=== PATIENT | female | born 1960 | race Caucasian/White ===

== ENCOUNTER → 2018-11-23 | Outpatient (CLI) | payer MEDICARE, OTHER ==
[~2018-11-23] MED LIST: AMLO5 PO; Abilify2 MG PO; CEPH250A PO; CEPH500 PO; CLIN300 PO; CODACE30; DIAZ5 PO; DULO60 PO; FURO40 PO; HYDCHL25; HYDR1TAB94 PO; LISI10 PO; LISI20 PO; LOPE2C PO; METF500 PO; METH10 PO; METH40 PO; METO25 PO; MULVITA PO; OXYACE7.5T PO; OXYC10ER PO; POTCHL10ER PO; PRED20 PO; SERT50; TAMS.4ER PO; TOPI50 PO; TRAZ100; TRAZ100 PO; VALS80 PO
== END | disposition home or self-care (01) ==
LOC: LAB 11:07 → LAB SHORT 11:07
DX: N39.0 Urinary tract infection, site not specified (principal)
CPT/HCPCS: 87086

== ENCOUNTER → 2018-12-31 | Outpatient (CLI) | payer MEDICARE, OTHER | END | disposition home or self-care (01) | LOC: LAB 14:30 → LAB SHORT 14:30 | DX: R30.0 Dysuria (principal) | CPT/HCPCS: 87077; 87086; 87186 ==

== ENCOUNTER 2021-01-30 14:28 | Emergency (ER) | payer OTHER ==
[~2021-01-30] VITALS: Ht 157.5 cm; Wt 101.2 kg
[2021-01-30] MEDS ORDERED: LIDO700A20 TOP (16:35)
[2021-01-30] MEDS ORDERED: Acetaminophen500 MG PO (16:35)
== END 2021-01-30 17:02 | disposition home or self-care (01) ==
LOC: ER 14:28
DX: S09.90XA Unspecified injury of head, initial encounter (principal); S50.11XA Contusion of right forearm, initial encounter; S80.211A Abrasion, right knee, initial encounter; Z79.899 Other long term (current) drug therapy; Z98.84 Bariatric surgery status; Z88.0 Allergy status to penicillin; Y04.2XXA Assault by strike against or bumped into by another person, initial encounter
CPT/HCPCS: 73030; 73090; 73562-RT; 99284-25; A9270

== ENCOUNTER → 2021-02-18 | Outpatient (CLI) | payer OTHER ==
[~2021-02-18] MED LIST changes: +Acetaminophen500 MG PO; +LIDO700A20 TOP
== END | disposition home or self-care (01) ==
LOC: LAB SHORT 16:35
DX: M79.672 Pain in left foot (principal)
CPT/HCPCS: 84550

== ENCOUNTER → 2021-11-01 | Outpatient (CLI) | payer OTHER ==
[~2021-11-01] MED LIST changes: +ALLO300 PO; +SPIR50 PO
== END | disposition home or self-care (01) ==
LOC: LAB SHORT 13:07 → LAB 13:07
DX: R30.9 Painful micturition, unspecified (principal)
CPT/HCPCS: 87086

== ENCOUNTER → 2022-07-10 | Outpatient (CLI) | payer OTHER | END | disposition home or self-care (01) | LOC: LAB SHORT 13:20 → LAB 13:20 | DX: N39.0 Urinary tract infection, site not specified (principal) | CPT/HCPCS: 87086 ==

== ENCOUNTER 2022-09-01 06:07 | Day surgery (SDC) | payer OTHER ==
[~2022-09-01] VITALS: Ht 157.5 cm; Wt 104.7 kg
[~2022-09-01 06:07] MED LIST changes: +CALC.25 PO; +LOSA50 PO
[2022-09-01] MEDS ORDERED: Ventolin/Prove6.7 GM INH (07:21)
--- NOTE | 2022-09-01 07:41 | NUR ---
09/01/22 0741 Lori Prabhakar TYLENOL,OXYCODONE GIVEN PO PER ORDERS, SEE MAR VANCOMYCIN STARTED IN PRE-OP 0715 PER ORDERS
--- NOTE | 2022-09-01 08:30 | NUR ---
09/01/22 0830 Eirc De Paz BLOCK COMPLETE IN OR PRIOR TO INTUBATION. SITE CHECK COMPELTE. PT TOLERATED WELL, VSS.
[2022-09-01 12:23] VITALS: BP 116/59
--- NOTE | 2022-09-01 14:36 | NUR ---
09/01/22 1436 Rosendo Nair PT'S APPEARED AGITATED UPON BEING BROUGHT TO STEP DOWN. HE ASKED SEVERAL TIMES HOW MUCH LONGER RECOVERY WOULD TAKE AND COMPLAINED ABOUT BEING HUNGRY. HE WAS GIVEN SNACKS. PT'S LEFT THE ROOM SHORTLY AFTERWARD AND ASKED THE RN TO LET HIM KNOW WHEN PATIENT WAS READY TO GO HOME. PT'S O2 INITIALLY MAINTAINED 91-96% WITH SUPPLEMENTAL OXYGEN VIA NASAL CANULA IN STEP DOWN. PT WOULD DROP IN TO THE 80'S WHEN SUPPLEMENTAL OXYGEN WAS REMOVED. BY THE END OF PT'S STAY IN STEP DOWN, SHE WAS MAINTAINING 92-97% O2 ON ROOM AIR WITH OCCASIONAL DROPS LOW 86%. PT'S O2 WOULD RETURN TO 90'S SPONTANEOUSLY AFTER 1-3 MINUTES. PT DENIED DIZZINESS, SHORTNESS OF BREATH, OR OTHER SYMPTOMS OF HYPOXIA WHEN O2 WAS REMOVED. DR. COCHRAN AND DR. ZUNIGA WERE CONSULTED. THEY APPROVED PT'S DISCHARGE WITH THE AGREEMENT SHE WOULD SLEEP IN A RECLINER AND WEAR HER CPAP FOR SEVEN DAY AND USE INCENTIVE SPIROMETERY. PT AGREED TO THESE TERMS AND WAS INSTRUCTED IN USE OF INCENTIVE SPIROMTER. SHE DENIED PAIN AND NAUSEA THROUGHOUT HER STAY IN STEP DOWN.
== END 2022-09-01 13:50 | disposition home or self-care (01) ==
LOC: ORSCSDS 06:07
PROVIDERS: Orthopaedic Surgery
PROC: 0RRJ00Z Replacement of Right Shoulder Joint with Reverse Ball and Socket Synthetic Substitute, Open Approach (ICD-10-PCS; principal; 2022-09-01 07:30)
DX: M19.011 Primary osteoarthritis, right shoulder (principal); M75.121 Complete rotator cuff tear or rupture of right shoulder, not specified as traumatic; I10 Essential (primary) hypertension; J44.9 Chronic obstructive pulmonary disease, unspecified; G47.33 Obstructive sleep apnea (adult) (pediatric); E11.9 Type 2 diabetes mellitus without complications; F41.8 Other specified anxiety disorders; E66.01 Morbid (severe) obesity due to excess calories; Z68.41 Body mass index [BMI] 40.0-44.9, adult; Z79.84 Long term (current) use of oral hypoglycemic drugs; Z79.899 Other long term (current) drug therapy
CPT/HCPCS: 73030; 82947; A9270; C1713; C1776; J0171; J0696; J1100; J2250; J2370; J2405; J2704; J2795; J3010; J3370; J7060; J7120

== ENCOUNTER 2024-06-01 19:39 | Inpatient (IN) | payer OTHER ==
[~2024-06-01] VITALS: Ht 152.4 cm; Wt 108.0 kg
[~2024-06-01 19:39] MED LIST changes: +ABILIFY MYCITE5 M2 PO; +ALBU90OI INH; -Abilify2 MG PO; +Ventolin/Prove6.7 GM INH
[2024-06-01 20:25] LABS: BASOPHILS ABSOLUTE AUTO 0.03 K/mm3 (0.00-0.23); BASOPHILS PERCENT AUTO 0 % (0-2); EOSINOPHILS ABSOLUTE AUTO 0.26 K/mm3 (0.00-0.68); EOSINOPHILS PERCENT AUTO 3 % (0-6); Hematocrit 36.9 % (33.0-51.0); Hemoglobin 12.2 g/dL (11.5-16.0); IMMATURE GRAN ABSOLUTE AUTO 0.07 K/mm3 (0.00-0.10); IMMATURE GRAN PERCENT AUTO 1 % (0-1); LYMPHOCYTES ABSOLUTE AUTO 1.51 K/mm3 (0.84-5.20); LYMPHOCYTES PERCENT AUTO 15 % (21-46); MONOCYTES ABSOLUTE AUTO 1.56 K/mm3 (0.16-1.47); MONOCYTES PERCENT AUTO 16 % (4-13); Mean Corpuscular HGB 31.7 pg (26.0-34.0); Mean Corpuscular HGB Conc 33.1 g/dL (31.5-36.5); Mean Corpuscular Volume 96 fL (80-100); Mean Platelet Volume 10.6 fL (9.1-12.4); NEUTROPHILS ABSOLUTE AUTO 6.56 K/mm3 (1.96-9.15); NEUTROPHILS PERCENT AUTO 66 % (41-73); Platelet Count 173 K/mm3 (150-400); RDW Coefficient Variation 12.9 % (11.7-14.2); RDW Standard Deviation 45.4 fL (35.1-46.3); Red Blood Cell Count 3.85 M/mm3 (3.80-5.20); White Blood Cell Count 9.99 K/mm3 (4.00-11.30)
[2024-06-01 20:38] LABS: Albumin, Blood 2.8 g/dL (3.4-5.0); Albumin/Globulin Ratio 0.6 (0.8-1.8); Bilirubin, Total 0.5 mg/dL (0.1-1.0); Bun/Creatinine Ratio 9.8 (12.0-20.0); Calcium, Blood 9.3 mg/dL (8.5-10.1); Creatinine, Blood 1.32 mg/dL (0.40-1.00); Globulin, Blood 4.5 g/dL (2.2-4.0); Potassium, Blood 3.4 mmol/L (3.5-5.5); Total Protein, Blood 7.3 g/dL (6.4-8.2)
[2024-06-01 21:01] LABS: Influenza A, PCR NEGATIVE (NEGATIVE); Influenza B, PCR NEGATIVE (NEGATIVE); Resp Syncytial Virus, PCR NEGATIVE (NEGATIVE); SARS-Cov-2 (COVID-19) PCR, MMC NEGATIVE (NEGATIVE)
[2024-06-01] MEDS ORDERED: CefTRIAXone Sodium 1,000 MG in NS 50 ML IV ONE ×2 (21:55→22:25)
[2024-06-01] MEDS ORDERED: MethylPREDNISolone Sod Succ 125 MG Vial IV ONE (21:55)
[2024-06-01] MEDS ORDERED: Ipratropium/Albuterol SulF 2.5-0.5MG/3 ML Amp INH ONE (21:55)
[2024-06-01] MEDS ORDERED: Azithromycin 250 MG Tab PO ONE (21:55)
[2024-06-01] MEDS ORDERED: Ondansetron HCl 2 MG / ML 2ML Vial IV ONE (22:40)
[2024-06-02] MEDS ORDERED: Ondansetron HCl 2 MG / ML 2ML Vial IV PRN (00:30)
[2024-06-02] MEDS ORDERED: FLU VACC TS2024-25(6MOS UP)/PF 45 MCG/0.5 ML SYRINGE IM ONE (00:30)
[2024-06-02] MEDS ORDERED: Albuterol 2.5 MG/3 ML VIAL INH PRN (00:30)
[2024-06-02] MEDS ORDERED: Acetaminophen 325 MG TABLET PO PRN (00:30)
[2024-06-02 02:17] VITALS: BP 112/57
[2024-06-02] MEDS ORDERED: Mometasone/Formoterol MDI 200/5 mcg 13 GM INH SCH (03:20)
[2024-06-02] MEDS ORDERED: Albuterol 2.5 MG/3 ML VIAL INH SCH (03:20)
[2024-06-02 05:32] LABS: BASOPHILS ABSOLUTE AUTO 0.02 K/mm3 (0.00-0.23); BASOPHILS PERCENT AUTO 0 % (0-2); EOSINOPHILS PERCENT AUTO 0 % (0-6); Hematocrit 37.6 % (33.0-51.0); Hemoglobin 12.4 g/dL (11.5-16.0); IMMATURE GRAN ABSOLUTE AUTO 0.14 K/mm3 (0.00-0.10); IMMATURE GRAN PERCENT AUTO 2 % (0-1); LYMPHOCYTES PERCENT AUTO 5 % (21-46); MONOCYTES ABSOLUTE AUTO 0.35 K/mm3 (0.16-1.47); MONOCYTES PERCENT AUTO 4 % (4-13); Mean Corpuscular HGB 31.4 pg (26.0-34.0); Mean Corpuscular Volume 95 fL (80-100); Mean Platelet Volume 10.6 fL (9.1-12.4); NEUTROPHILS ABSOLUTE AUTO 8.58 K/mm3 (1.96-9.15); NEUTROPHILS PERCENT AUTO 90 % (41-73); Platelet Count 189 K/mm3 (150-400); RDW Coefficient Variation 12.9 % (11.7-14.2); RDW Standard Deviation 45.1 fL (35.1-46.3); Red Blood Cell Count 3.95 M/mm3 (3.80-5.20); White Blood Cell Count 9.59 K/mm3 (4.00-11.30)
[2024-06-02 06:09] LABS: Albumin, Blood 2.9 g/dL (3.4-5.0); Albumin/Globulin Ratio 0.6 (0.8-1.8); Bilirubin, Total 0.3 mg/dL (0.1-1.0); Bun/Creatinine Ratio 10.2 (12.0-20.0); Calcium, Blood 9.4 mg/dL (8.5-10.1); Creatinine, Blood 1.37 mg/dL (0.40-1.00); Globulin, Blood 4.8 g/dL (2.2-4.0); Magnesium, Blood 2.2 mg/dL (1.6-2.4); Potassium, Blood 3.8 mmol/L (3.5-5.5); Total Protein, Blood 7.7 g/dL (6.4-8.2)
[2024-06-02 07:42] VITALS: BP 115/90
[2024-06-02] MEDS ORDERED: Benzonatate 100 MG Cap PO PRN (08:25)
[2024-06-02 08:39] LABS: Base Excess Venous -1.3 mmol/L; Bicarbonate Venous 22.6 mmol/L (24.0-30.0); PCO2 Venous 53.8 mmHg (38-42); pH Blood Venous 7.28 (7.34-7.37)
[2024-06-02] MEDS ORDERED: Lactobacil 2-S.Thermo-Bifido 1 1 Cap PO SCH (09:00)
[2024-06-02] MEDS ORDERED: Enoxaparin 40 MG/0.4 ML SYR SC SCH (09:00)
[2024-06-02] MEDS ORDERED: Docusate Sodium/Senna 1 Tab PO ONE (11:50)
[2024-06-02] MEDS ORDERED: Docusate Sodium/Senna 1 Tab PO PRN (11:50)
[2024-06-02] MEDS ORDERED: Furosemide 10 MG / ML 2ML Vial IV ONE (12:35)
[2024-06-02] MEDS ORDERED: Lactated Ringer's 1,000 ML IV SCH (14:05)
[2024-06-02 16:11] VITALS: BP 116/70
[2024-06-02] MEDS ORDERED: TraZODone HCl 50 MG Tab PO PRN (18:05)
--- NOTE | 2024-06-02 18:39 | NUR ---
SHIFT SUMMARY PT A&OX4. PT ADMITTED DUE TO PNEUMONIA. PT REPORTS SOB WHEN AMBULATING AND LAYING FLAT. PT REPORTS GENERALIZED PAIN. PAIN MANAGED PER EMAR. CONT. PULSE OX ON. SPO2 IS 97% AND ON 6L OF O2 WITH N/C AND HUMIDIFIER. PT GETS RESPIRATORY TREATNENTS PRN. PT HAS PRODUCTIVE COUGH, PT REPORTS IMPROVEMENT WITH TESSLON. PT USES CANE AT BASE AND IS A SBA TO BSC. PT REPORTS FREQUENCY VOIDING AND IS CONT. OF URINE AND BOWELS. ORDERED PM PRN TRAZADONE PER PT REQUEST FOR SLEEP, PT USES CPAP AT NIGHT. PT BED IN LOWEST POSITION. PT HAS A BAG OF LR RUNNING AT 200ML/HR. A CRITICAL PH OF 7.28 WAS REPORTED TODAY, NOTIFIED A CRITICAL LACTIC ACID WAS REPORTED OF 2.1, WAS NOTIFIED. LACTIC ACID RECHECKED AND NOW 1.8. CALL LIGHT IN REACH.
[2024-06-02] MEDS ORDERED: FLUT1DIS2 INH (19:05)
[2024-06-02 20:33] VITALS: BP 102/51
[2024-06-02] MEDS ORDERED: CefTRIAXone Sodium 1,000 MG in NS 100 ML IV SCH (21:00)
[2024-06-02] MEDS ORDERED: Azithromycin 500 MG in NS 250 ML IV SCH (21:00)
[2024-06-03] MEDS ORDERED: ALLO100 PO (02:22)
[2024-06-03] MEDS ORDERED: Lovastatin20 MG PO (02:23)
[2024-06-03] MEDS ORDERED: DULO60 PO (02:23)
[2024-06-03 04:36] VITALS: BP 120/66
[2024-06-03 05:25] LABS: Base Excess Venous 2.9 mmol/L; Bicarbonate Venous 25.7 mmol/L (24.0-30.0); PCO2 Venous 61.2 mmHg (38-42); pH Blood Venous 7.29 (7.34-7.37)
--- NOTE | 2024-06-03 06:02 | NUR ---
SHIFT SUMMARY VIVITED UNTIL 8PM, APPEARED TO HAVE RESTED FAIR OVERNIGHT, ORIENTED X2 (PERSON/PLACE) VERY SLOW TO RESPOND TO QUESTIONS & ANSWERS APPROPRIATELY INCONSISTENTLY, SKIN WARM TO COOL AND DRY,FEET COLD, PT PREFERS NO SHEET OR BLANKET OVER HER, TOLERATED BIPAP MOST OF NIGHT ALTHOUGH VOICED DID NOT LIKE IT. REMOVED FOR A.M. TYLENOL REQUEST FOR BILAT LEG PAIN, 02 REAPPLIED AT 3L/M NC WHEN BIPAP NOT ON. SATS LOW TO MID 90s OVERNIGHT WITH HRs 80S TO 107 RANGE, HAD A 5 BEAT RUN OF V TACH TWICE OVERNIGHT (ASYMPTOMATIC/DURING SLEEP), VSS, INTERMITTENT LOOSE TO SOFT (BROWN) STOOLS ONGOING, [place] [facility] AND [place] [facility] DONE AFTER EA EPISODE. TURNED Q 2 HRS, TOLERATED, NO RESP DISTRESS.
[2024-06-03 06:11] LABS: BASOPHILS ABSOLUTE AUTO 0.05 K/mm3 (0.00-0.23); BASOPHILS PERCENT AUTO 1 % (0-2); EOSINOPHILS ABSOLUTE AUTO 0.09 K/mm3 (0.00-0.68); EOSINOPHILS PERCENT AUTO 1 % (0-6); Hematocrit 36.2 % (33.0-51.0); Hemoglobin 11.7 g/dL (11.5-16.0); IMMATURE GRAN ABSOLUTE AUTO 0.27 K/mm3 (0.00-0.10); IMMATURE GRAN PERCENT AUTO 3 % (0-1); LYMPHOCYTES ABSOLUTE AUTO 1.64 K/mm3 (0.84-5.20); LYMPHOCYTES PERCENT AUTO 16 % (21-46); MONOCYTES PERCENT AUTO 11 % (4-13); Mean Corpuscular HGB 31.5 pg (26.0-34.0); Mean Corpuscular HGB Conc 32.3 g/dL (31.5-36.5); Mean Corpuscular Volume 97 fL (80-100); Mean Platelet Volume 10.7 fL (9.1-12.4); NEUTROPHILS ABSOLUTE AUTO 7.01 K/mm3 (1.96-9.15); NEUTROPHILS PERCENT AUTO 69 % (41-73); Platelet Count 197 K/mm3 (150-400); RDW Standard Deviation 46.4 fL (35.1-46.3); Red Blood Cell Count 3.72 M/mm3 (3.80-5.20); White Blood Cell Count 10.16 K/mm3 (4.00-11.30)
[2024-06-03 06:32] LABS: Bun/Creatinine Ratio 12.8 (12.0-20.0); Calcium, Blood 9.1 mg/dL (8.5-10.1); Creatinine, Blood 1.64 mg/dL (0.40-1.00); Potassium, Blood 3.5 mmol/L (3.5-5.5)
[2024-06-03] MEDS ORDERED: Benzonatate 100 MG Cap PO PRN (10:30)
[2024-06-03] MEDS ORDERED: Benzonatate 100 MG Cap PO ONE (10:30)
[2024-06-03 16:45] VITALS: BP 141/72
--- NOTE | 2024-06-03 18:47 | NUR ---
SHIFT SUMMARY PT A&OX4. PT ADMITTED DUE TO PNEUMONIA. PT REPORTS SOB WHEN AMBULATING AND LAYING FLAT. PT REPORTS GENERALIZED PAIN AND HEADACHE, PAIN MANAGED PER EMAR. CONT. PULSE OX ON. SPO2 IS 94% ON 6 LITERS VIA N/C WITH HUMIDIFIER. PT GETS RESPIRATORY TREATMENT PRN. 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 PT HAS PRODUCTIVE COUGH. PT REQUESTED INCREASE IN DOSE OF TESSLON PEARLS, DR. SALDIVAR NOTIFIED AND INCREASED. PT HAS SOME STRESS INC. PT REPORTS FREQ VOIDING AND IS CONT. OF URINE AND BOWELS. PT TRANSFERS TO BSC. PT SITTING IN RECLINER TODAY. CALL LIGHT IN REACH, CALLS APPROPRIATE. VSS.
[2024-06-03 19:33] VITALS: BP 136/65
[2024-06-03] MEDS ORDERED: NS 250 ML IV PRN (20:15)
[2024-06-04 02:42] VITALS: BP 125/66
--- NOTE | 2024-06-04 05:01 | NUR ---
SHIFT SUMMARY: Pt is admitted for PNA and is a full code. Is alert and able to make needs known. ADLs have been SBA. Pain has been managed with PRN medication.
[2024-06-04 05:42] LABS: BASOPHILS ABSOLUTE AUTO 0.05 K/mm3 (0.00-0.23); BASOPHILS PERCENT AUTO 1 % (0-2); EOSINOPHILS ABSOLUTE AUTO 0.12 K/mm3 (0.00-0.68); EOSINOPHILS PERCENT AUTO 1 % (0-6); Hematocrit 35.2 % (33.0-51.0); Hemoglobin 11.2 g/dL (11.5-16.0); IMMATURE GRAN ABSOLUTE AUTO 0.41 K/mm3 (0.00-0.10); IMMATURE GRAN PERCENT AUTO 5 % (0-1); LYMPHOCYTES ABSOLUTE AUTO 1.52 K/mm3 (0.84-5.20); LYMPHOCYTES PERCENT AUTO 18 % (21-46); MONOCYTES ABSOLUTE AUTO 1.04 K/mm3 (0.16-1.47); MONOCYTES PERCENT AUTO 12 % (4-13); Mean Corpuscular HGB 30.9 pg (26.0-34.0); Mean Corpuscular HGB Conc 31.8 g/dL (31.5-36.5); Mean Corpuscular Volume 97 fL (80-100); Mean Platelet Volume 10.2 fL (9.1-12.4); NEUTROPHILS ABSOLUTE AUTO 5.31 K/mm3 (1.96-9.15); NEUTROPHILS PERCENT AUTO 63 % (41-73); Platelet Count 179 K/mm3 (150-400); RDW Coefficient Variation 13.1 % (11.7-14.2); RDW Standard Deviation 46.4 fL (35.1-46.3); Red Blood Cell Count 3.62 M/mm3 (3.80-5.20); White Blood Cell Count 8.45 K/mm3 (4.00-11.30)
[2024-06-04 05:46] LABS: Base Excess Venous 4.4 mmol/L; Bicarbonate Venous 28.3 mmol/L (24.0-30.0); PCO2 Venous 35.8 mmHg (38-42)
[2024-06-04 06:13] LABS: Bun/Creatinine Ratio 14.5 (12.0-20.0); Calcium, Blood 8.9 mg/dL (8.5-10.1); Creatinine, Blood 1.24 mg/dL (0.40-1.00); Potassium, Blood 3.9 mmol/L (3.5-5.5)
[2024-06-04 07:14] VITALS: BP 153/66
--- NOTE | 2024-06-04 09:00 | NUR ---
pt sitting up in a chair a/ox4, pleasant and cooperative with care, follows commands well, denies pain, lungs are clear in upper [place], course in bases, resp even and unlabored, currently on 6 liters o2 via n/c, resp even and unlabored, reports an occ productive cough, hrr, trace edema to b/l le, ppp+2, cap refill<3 sec, vs stable, afebrile, piv to lac, site is clear and patent, btx4, abd flat soft nontender, voids without diff, skin c/w/d, maew, edgar, call light in reach.
[2024-06-04 15:14] VITALS: BP 126/96
[2024-06-04 15:15] VITALS: BP 141/70
--- NOTE | 2024-06-04 18:28 | NUR ---
pt has been up in chair most of the day, she has a harsh wet productive cough, asked Dr. Moon about mucinex for her, he placed order, she is currently on 4 liters o2 via n/c, call light in reach.
[2024-06-04 19:23] VITALS: BP 128/69
[2024-06-04] MEDS ORDERED: GuaiFENesin 600 MG TabCR PO SCH (21:00)
[2024-06-05 02:51] VITALS: BP 122/65
[2024-06-05 06:41] LABS: Bicarbonate Venous 28.4 mmol/L (24.0-30.0); pH Blood Venous 7.44 (7.34-7.37)
[2024-06-05 06:55] LABS: Hematocrit 35.4 % (33.0-51.0); Hemoglobin 11.6 g/dL (11.5-16.0); Mean Corpuscular HGB 31.6 pg (26.0-34.0); Mean Corpuscular HGB Conc 32.8 g/dL (31.5-36.5); Mean Corpuscular Volume 97 fL (80-100); Mean Platelet Volume 9.9 fL (9.1-12.4); Platelet Count 202 K/mm3 (150-400); RDW Standard Deviation 45.9 fL (35.1-46.3); Red Blood Cell Count 3.67 M/mm3 (3.80-5.20); White Blood Cell Count 10.32 K/mm3 (4.00-11.30)
[2024-06-05 07:09] LABS: Bun/Creatinine Ratio 12.5 (12.0-20.0); Calcium, Blood 9.2 mg/dL (8.5-10.1); Creatinine, Blood 1.12 mg/dL (0.40-1.00); Potassium, Blood 4.1 mmol/L (3.5-5.5)
[2024-06-05 07:18] LABS: BAND PERCENT MAN 2 % (0-8); BASOPHILS PERCENT MAN 0 % (0-2); EOSINOPHILS PERCENT MAN 1 % (0-6); LYMPHOCYTES ABSOLUTE MAN 1.85 K/mm3 (0.84-5.20); LYMPHOCYTES PERCENT MAN 18 % (21-46); MONOCYTES ABSOLUTE MAN 1.34 K/mm3 (0.16-1.47); MONOCYTES PERCENT MAN 13 % (4-13); MYELOCYTE PERCENT MAN 1 % (0-0); NEUTROPHILS ABSOLUTE MAN 6.91 K/mm3 (1.96-9.15); SEG NEUTROPHILS PERCENT MAN 65 % (41-73); TOTAL CELLS COUNTED 100
[2024-06-05 08:00] VITALS: BP 132/61
[2024-06-05] MEDS ORDERED: AmLODIPine Besylate 5 MG Tab PO SCH (09:00)
[2024-06-05] MEDS ORDERED: Potassium Chloride 10 Meq Tablet SA PO SCH (09:00)
[2024-06-05] MEDS ORDERED: Pravastatin Sodium 20 MG Tab PO SCH (09:00)
[2024-06-05] MEDS ORDERED: Metoprolol Tartrate 25 MG Tab PO SCH (09:00)
[2024-06-05] MEDS ORDERED: Losartan Potassium 50 MG Tab PO SCH (09:00)
[2024-06-05] MEDS ORDERED: DULoxetine HCL 60 MG Capsule DR PO SCH (09:00)
[2024-06-05] MEDS ORDERED: Allopurinol 100 MG Tab PO SCH (09:00)
[2024-06-05] MEDS ORDERED: ARIPiprazole 5 MG Tab PO SCH (09:00)
--- NOTE | 2024-06-05 11:50 | NUR ---
COMPLETING HOME O2 EVAL WITH RESPIRATORY THERAPY.
[2024-06-05] MEDS ORDERED: Tessalon200 MG PO (14:20)
[2024-06-05] MEDS ORDERED: GUAI600T33 PO (14:21)
[2024-06-05] MEDS ORDERED: TRAZ50 PO (14:21)
[2024-06-05] MEDS ORDERED: CEFP200 PO (14:21)
[2024-06-05] MEDS ORDERED: VISBIOME 112.51 EACH PO (14:22)
--- NOTE | 2024-06-05 15:40 | NUR ---
DISCHARGE - PT WAS DISCHARGED TO CARE OF HER DAUGHTER, IN PRIVATE VEHICLE. PT EXITED THE MEDICAL FLOOR IN A WHEELCHAIR POWERED BY DESIGN CHECKER TIMMY Rivera. IV WAS REMOVED BY DESIGN CHECKER. DISCHARGE EDUCATION COMPLETED BY NURSE ESTELA Fisher. RX NEEDED FAXED TO [facility] PER PT REQUEST. PERSONAL BELONGINGS RETURNED. PT TOLERATED PROCEDURE WELL.
[2024-06-06] MEDS ORDERED: Calcitriol 0.25 MCG Cap PO SCH (09:00)
== END 2024-06-05 15:35 | disposition home or self-care (01) | DRG 871 ==
LOC: ER 19:39 → EOR 19:40 → MEDS 19:40
PROVIDERS: Family Medicine; Student in an Organized Health Care Education/Training Program; ADMIT Student in an Organized Health Care Education/Training Program
DX: A41.9 Sepsis, unspecified organism (principal); J18.9 Pneumonia, unspecified organism; J96.01 Acute respiratory failure with hypoxia; J96.02 Acute respiratory failure with hypercapnia; E87.21 Acute metabolic acidosis; N18.4 Chronic kidney disease, stage 4 (severe); R65.20 Severe sepsis without septic shock; E87.6 Hypokalemia; G51.0 Bell's palsy; I12.9 Hypertensive chronic kidney disease with stage 1 through stage 4 chronic kidney disease, or unspecified chronic kidney disease; E11.22 Type 2 diabetes mellitus with diabetic chronic kidney disease; Z96.611 Presence of right artificial shoulder joint; Z88.0 Allergy status to penicillin; Z79.899 Other long term (current) drug therapy; Z79.84 Long term (current) use of oral hypoglycemic drugs
CPT/HCPCS: 0241U; 36415; 71046; 80048; 80053; 82803; 83605; 83735; 84145; 85025; 87040; 87070; 87205; 93005; 93010; 94640; 94660; 94664; 94761; 94762; 96365; 96372; 96375; 96376; 97162; 97530; 99285-25; A9270; G0378; J0456; J0696; J1650; J1940; J2405; J2919; J7050; J7120